=== PATIENT | male | born 1950 | race Caucasian/White ===

== ENCOUNTER → 2017-02-01 | Outpatient (CLI) | payer MEDICARE ==
--- NOTE | 2017-02-01 08:46 | US ---
EXAMINATION TYPE: US liver DATE OF EXAM: 02/01/2017 COMPARISON: NONE CLINICAL HISTORY: R94.5 ABN LIVER FUNCTIONS. acid reflux EXAM MEASUREMENTS: Liver Length: 16.4 cm Gallbladder Wall: Surgically absent CBD: 0.8 cm Right Kidney: 10.3 x 4.3 x 5.6 cm overlying bowel gas limits exam Pancreas: not seen Liver: very difficult to penetrate, heterogeneous, intercostal imaging Gallbladder: Surgically absent Evidence for sonographic Jimenez's sign: no CBD: wnl Right Kidney: wnl Pancreas is suboptimally seen on images saved. Liver is heterogeneously hyperechoic. Evaluation for f ocal masses is suboptimal due to the heterogeneity. No acute hepatic ductal dilatation is seen. Commo n bile duct is within normal limits after cholecystectomy. Gallbladder surgically absent. Limited ivania ges of right kidney show no gross hydronephrosis. IMPRESSION: Heterogeneously hyperechoic appearance to liver could reflect product of diffuse fatty in filtration or underlying hepatocellular disease. Imaging guided random biopsy for tissue analysis can be performed if desired.
== END ==
LOC: RADUSWWP 07:05
PROVIDERS: ATTEND Internal Medicine
DX: R94.5 Abnormal results of liver function studies (principal)
CPT/HCPCS: 76705

== ENCOUNTER → 2017-08-13 | Outpatient (CLI) | payer MEDICARE | END | disposition home or self-care (01) | LOC: RADUSMAIN 07:53 | PROVIDERS: ATTEND Internal Medicine | DX: Z53.9 Procedure and treatment not carried out, unspecified reason (principal) ==

== ENCOUNTER 2022-11-03 08:45 | Day surgery (SDC) | payer MEDICARE ==
[2022-10-31 09:16] VITALS: BMI 29.4
[~2022-11-03 08:45] MED LIST: LACTATED RINGERS 1,000 ML IV SCH
[2022-11-03 10:36] VITALS: RESP 16; TEMP 98.1
[2022-11-03] MEDS ORDERED: PROPOFOL 10 MG/ML 20 ML VIAL IV ONE (11:56)
--- NOTE | 2022-11-03 12:09 | P.PCN ---
Date of Procedure: 11/03/22 Procedure(s) Performed: BRIEF HISTORY: Patient is a 72-year-old pleasant white male scheduled for an elective colonoscopy as a part of evaluation of Hemoccult-positive stool. PROCEDURE PERFORMED: Colonoscopy. PREOPERATIVE DIAGNOSIS: Hemoccult-positive stool. IV sedation per Anesthesia. PROCEDURE: After informed consent was obtained, the patient, was brought into the endoscopy unit. IV sedation was administered by Anesthesia under continuous monitoring. Digital rectal examination was normal. Initially the Olympus CF-160 flexible video colonoscope was then inserted in the rectum, gradually advanced into the cecum without any difficulty. Careful examination was performed as the scope was gradually being withdrawn. Ileocecal valve and the appendiceal orifice were visualized and appeared normal. Prep was excellent. Mucosa of the cecum, ascending colon, transverse colon, descending colon, sigmoid colon, and rectum appeared normal. Scattered sigmoid diverticulosis Retroflexion was performed in the rectum and no lesions were seen. The patient tolerated the procedure well. IMPRESSION: Normal-appearing colon from rectum to cecum with no evidence of colorectal neoplasia. Scattered sigmoid diverticulosis RECOMMENDATIONS: Findings of this examination were discussed with the patient as well as the his family. He was advised to have a repeat screening colonoscopy in 10 years..
[2022-11-03 12:33] VITALS: BP 117/78; PULSE 62
== END 2022-11-03 12:49 | disposition home or self-care (01) ==
LOC: ORWHC2ENDO 08:45
PROVIDERS: ATTEND Internal Medicine Gastroenterology
DX: K57.30 Diverticulosis of large intestine without perforation or abscess without bleeding (principal); K76.0 Fatty (change of) liver, not elsewhere classified; I10 Essential (primary) hypertension; N40.0 Benign prostatic hyperplasia without lower urinary tract symptoms; K21.9 Gastro-esophageal reflux disease without esophagitis; Z79.83 Long term (current) use of bisphosphonates; Z79.899 Other long term (current) drug therapy
CPT/HCPCS: 45378; J2704

== ENCOUNTER 2023-04-09 12:33 | Day surgery (SDC) | payer MEDICARE ==
[2023-04-04 09:07] VITALS: BMI 32.5
[2023-04-09] MEDS ORDERED: LACTATED RINGERS 1,000 ML IV ONE (12:43)
[2023-04-09 13:12] VITALS: TEMP 97.3
[2023-04-09] MEDS ORDERED: LIDOCAINE 2% (PF) 20 MG/ML 5 ML VIAL ONE (13:26)
[2023-04-09] MEDS ORDERED: PROPOFOL 10 MG/ML 20 ML VIAL IV ONE (13:26)
--- NOTE | 2023-04-09 13:28 | P.GSHP ---
History of Present Illness H&P Date: 04/09/23 Chief Complaint: . GERD this is a 73-year-old male complaints of GERD. Patient presents today for EGD. Past Medical History Past Medical History: GERD/Reflux, Hypertension, Liver Disease, Prostate Disorder Additional Past Medical History / Comment(s): Poor circulation legs. Fatty liver., difficulty urinating. Hx. of heart murmur History of Any Multi-Drug Resistant Organisms: None Reported Past Surgical History: Cholecystectomy Additional Past Surgical History / Comment(s): Colonoscopy Past Anesthesia/Blood Transfusion Reactions: No Reported Reaction Smoking Status: Never smoker - Past Family History Father Family Medical History: Cancer Medications and Allergies Home Medications Medication Instructions Recorded Confirmed Type Bisoprolol-Hctz 5-6.25 mg [Ziac 1 tab PO HS 10/31/22 04/04/23 History 5-6.25 MG] Omeprazole (Unknown Dose) 1 tab PO PC-LUNCH 10/31/22 04/04/23 History Tamsulosin [Flomax] 0.4 mg PO HS 10/31/22 04/04/23 History Allergies Allergy/AdvReac Type Severity Reaction Status Date / Time No Known Allergies Allergy Verified 04/09/23 12:47 Surgical - Exam Vital Signs Temp Pulse Resp BP Pulse Ox 97.3 F L 61 18 141/75 93 L 04/09/23 12:56 04/09/23 12:56 04/09/23 12:56 04/09/23 12:56 04/09/23 12:56 - General well developed, well nourished, no distress - Eyes PERRL - ENT normal pinna - Neck no masses - Respiratory normal expansion, normal respiratory effort Assessment and Plan Assessment: GERD. We'll perform EGD.
--- NOTE | 2023-04-09 13:39 | P.OP ---
Date of Procedure: 04/09/23 Preoperative Diagnosis: GERD Postoperative Diagnosis: sliding hiatal hernia Antral gastritis Procedure(s) Performed: EGD Anesthesia: MAC Surgeon: Luca Wren Pathology: other (antrum) Condition: stable Disposition: PACU Description of Procedure: patient's placed on the endoscopy table in the lateral position. He received IV sedation. The gastroscope patient oropharynx passed in the esophagus and into the stomach. Scope some placed through the pylorus. The first and second portion of the duodenum appeared normal. Scope was then brought back the antrum this was minimal inflamed. A biopsies was performed. Scope wais retroflexed.. The patient had a sliding hiatal hernia. The patient was coughing this could be visualized. sliding hiatal hernia could be seen moving with the patient was coughing. The GE junction was at 40 cms. The distal esophagus mildly inflamed. The proximal esophagus appeared normal. Scope withdrawn for patient.
[2023-04-09 14:00] VITALS: BP 125/76; PULSE 68; RESP 16
== END 2023-04-09 14:10 | disposition home or self-care (01) ==
LOC: ORWHC2ENDO 12:33
PROVIDERS: ATTEND Surgery
DX: K29.50 Unspecified chronic gastritis without bleeding (principal); K31.A11 Gastric intestinal metaplasia without dysplasia, involving the antrum; K44.9 Diaphragmatic hernia without obstruction or gangrene; K21.9 Gastro-esophageal reflux disease without esophagitis; I10 Essential (primary) hypertension; K76.9 Liver disease, unspecified; N40.0 Benign prostatic hyperplasia without lower urinary tract symptoms; N42.9 Disorder of prostate, unspecified; K76.0 Fatty (change of) liver, not elsewhere classified; F17.200 Nicotine dependence, unspecified, uncomplicated; Z90.49 Acquired absence of other specified parts of digestive tract; Z80.9 Family history of malignant neoplasm, unspecified; Z79.899 Other long term (current) drug therapy
CPT/HCPCS: 88305; 88342; 43239; J2704; J2001

== ENCOUNTER → 2023-05-30 | Outpatient (CLI) | payer MEDICARE ==
[2023-05-30 18:47] LABS: Basophils # (A) 0.04 X 10*3/uL (0.00-0.10); Basophils % (A) 0.7 %; Eosinophils # (A) 0.22 X 10*3/uL (0.04-0.35); Eosinophils % (A) 3.7 %; HCT 41.5 % (39.6-50.0); HGB 13.8 g/dL (13.0-17.0); Lymphocytes # (A) 1.55 X 10*3/uL (0.90-5.00); Lymphocytes % (A) 25.7 %; MCH 30.1 pg (27.0-32.0); MCHC 33.3 g/dL (32.0-37.0); MCV 90.6 FL (80.0-97.0); Mean Platelet Volume 12.1 FL (9.5-12.2); Monocytes # (A) 0.59 X 10*3/uL (0.20-1.00); Monocytes % (A) 9.8 %; NRBC Per 100 WBC 0 X 10*3/uL (0.00-0.01); Neutrophils % (A) 59.8 %; Platelet Count 182 X 10*3/uL (140-440); RBC 4.58 X 10*6/uL (4.40-5.60); RDW 12.9 % (11.5-14.5); WBC 6.02 X 10*3/uL (4.50-10.00)
== END | disposition home or self-care (01) ==
LOC: LABPAT 13:37
PROVIDERS: ATTEND Surgery
DX: Z01.812 Encounter for preprocedural laboratory examination (principal); K21.00 Gastro-esophageal reflux disease with esophagitis, without bleeding
CPT/HCPCS: 85025; 93005

== ENCOUNTER 2023-06-08 06:33 | Day surgery (SDC) | payer MEDICARE ==
[2023-06-08] MEDS ORDERED: MIDAZOLAM 2 MG/2 ML VIAL IV PRN (07:00)
[2023-06-08] MEDS ORDERED: HYDROmorphone 0.5 MG/0.5 ML SYRINGE IVP PRN (07:00)
[2023-06-08] MEDS: LACTATED RINGERS 1,000 ML IV SCH (07:28)
[2023-06-08] MEDS: ACETAMINOPHEN TAB 500 MG TAB PO PRN (07:44)
[2023-06-08] MEDS: ONDANSETRON 4 MG/2 ML VIAL IVP ONE (07:44)
[2023-06-08] MEDS: DEXAMETHASONE SOD PHOSPHATE 4 MG/ML 1 ML VIAL IV ONE (07:44)
[2023-06-08] MEDS: HEPARIN SODIUM,PORCINE 5,000 UNIT/ML 1 ML VIAL SQ PRN (07:44)
[2023-06-08] MEDS: FAMOTIDINE 20 MG/2 ML VIAL IVP ONE (07:45)
[2023-06-08] MEDS ORDERED: GLYCOPYRROLATE 0.2 MG/ML 2 ML VIAL ONE (08:34)
[2023-06-08] MEDS ORDERED: LIDOCAINE 1% INJ 10MG/ML (20 ML MDV) ONE (08:34)
[2023-06-08] MEDS ORDERED: ROCURONIUM 10 MG/ML (5 ML VIAL) IV ONE (08:34)
[2023-06-08] MEDS ORDERED: PROPOFOL 10 MG/ML 20 ML VIAL IV ONE (08:34)
[2023-06-08] MEDS ORDERED: NEOSTIGMINE 1 MG/ML 10 ML VIAL ONE (08:34)
[2023-06-08] MEDS ORDERED: MIDAZOLAM 2 MG/2 ML VIAL ONE (08:34)
[2023-06-08] MEDS ORDERED: fentaNYL (PF) 50 MCG/ML 2 ML AMP ONE (08:34)
[2023-06-08] MEDS ORDERED: HYDROmorphone (PF) 1 MG/ML ONE (08:34)
[2023-06-08] MEDS ORDERED: SUCCINYLCHOLINE CHLORIDE 200 MG/10 ML VIAL IV ONE (08:34)
[2023-06-08] MEDS: LIDOCAINE 1%-EPI 1:100,000 50 ML VIAL SQ ONE (09:17)
[2023-06-08] MEDS ORDERED: ONDANSETRON 4 MG/2 ML VIAL IVP PRN (09:49)
[2023-06-08] MEDS ORDERED: HYDROmorphone 1 MG/ML 1 ML SYRINGE IVP PRN (09:49)
--- NOTE | 2023-06-08 09:49 | P.OP ---
Date of Procedure: 06/08/23 Preoperative Diagnosis: GERD Postoperative Diagnosis: GERD Hiatal hernia Procedure(s) Performed: Laparoscopic Veronica fundoplication Anesthesia: BLANK Surgeon: Luca Wren Estimated Blood Loss (ml): 5 Pathology: none sent Condition: stable Disposition: PACU Description of Procedure: Korina patient was placed on the operating table in the supine position. The patient received general anesthesia. And was placed in dorsal lithotomy position. The patient was prepped and draped in the usual sterile fashion. The skin incision sites were anesthetized with 1% local Xylocaine. The skin was incised in the left periumbilical area and then using a blade less 5 mm trocar under direct visualization panel cavity was entered. After adequate insufflation the laparoscope was then placed into the peritoneal cavity. Next a 5 mm trochars placed in the right epigastric position. Another 5 millimeter trocar the right lateral position. Another 5 millimeter trocar in the left lateral position a 5 mm trocar is placed in the left epigastric position. And then the initial 5 mm trocar was exchanged for a 10 mm trocar. The left lateral lobe liver was retracted. The hernia was seen. The crural defect was then dissected using the Harmonic scissors device. A 360 crural dissection was performed the esophagus stomach was reduced back into the peritoneal Cavity. The crural defect was then closed using 2-0 Ethibond suture. Next the fundus of the stomach was mobilized using the Wilton scissors device. and then a 58- Tajik bougie dilator was placed oropharynx passed into the esophagus and stomach the fundal plication wrap was then performed by grasping the fundus posteriorly and bringing it around the esophagus and stomach fundoplication was then performed using 2-0 Ethibond suture. Care was taken that the fundal location rested over top of the intra-abdominal esophagus. There was no injury seen to the stomach or esophagus. The dilator was then withdrawn. The abdomen was irrigated there is no bleeding seen. The trochars were then withdrawn and then skin incision sites were closed using 3-0 Monocryl suture Steri-Strips are applied. Patient thought procedure well and sent to recovery room in stable condition.
[2023-06-08] MEDS: METOCLOPRAMIDE 5 MG/ML 2 ML VIAL IVP SCH (12:55)
[2023-06-08 13:45] VITALS: BMI 29.8
[2023-06-08] MEDS: D5-0.45% NACL WITH KCL 20MEQ/L 1,000 ML IV SCH (14:47)
[2023-06-09] MEDS: ENOXAPARIN 40 MG/0.4 ML SYRINGE SQ SCH (09:23)
--- NOTE | 2023-06-09 13:32 | P.PN ---
Progress Note - Text Progress Note Date: 06/09/23 Patient is postop day #1 from Veronica fundoplication. Overall he is feeling well but having difficulty with liquids currently. We will observe him 1 further day. Abdomen soft to palpation.
--- NOTE | 2023-06-09 14:32 | P.CONS ---
History of Present Illness - Reason for Consult Consult date: 06/09/23 - History of Present Illness This is a pleasant 73-year-old male with medical history of enlarged prostate, gastroesophageal reflux disease, hypertension, fatty liver, never smoker. Patient comes in for scheduled laparoscopic Veronica fundoplication is seen and evaluated today postoperative day #1. He is not reporting any significant abdominal discomfort no nausea vomiting or diarrhea. He has no shortness of breath no chest discomfort. He did state that he was having difficulty swallowing this morning. He stated that he did discuss this with the surgeon. He has a level today is 3.7. He is continued on D5 half-normal saline with 20 mEq of potassium at 125 MLS per hour. He is on DVT prophylaxis. He has resumed his Flomax. Hemodynamically he is stable. Pressure is running on the lower side with 100 systolic and we would recommend to hold his combination blood pressure medication at this time. REVIEW OF SYSTEMS: CONSTITUTIONAL: No fever, no malaise, no fatigue. HEENT: No recent visual problems or hearing problems. Denied any sore throat. CARDIOVASCULAR: No chest pain, orthopnea, PND, no palpitations, no syncope. PULMONARY: No shortness of breath, no cough, no hemoptysis. GASTROINTESTINAL: No diarrhea, no nausea, no vomiting, no abdominal pain. NEUROLOGICAL: No headaches, no weakness, no numbness. HEMATOLOGICAL: Denies any bleeding or petechiae. GENITOURINARY: Denies any burning micturition, frequency, or urgency. MUSCULOSKELETAL/RHEUMATOLOGICAL: Denies any joint pain, swelling, or any muscle pain. ENDOCRINE: Denies any polyuria or polydipsia. The rest of the 14-point review of systems is negative. PHYSICAL EXAMINATION: GENERAL: The patient is alert and oriented x3, not in any acute distress. Well developed, well nourished. HEENT: Pupils are round and equally reacting to light. EOMI. No scleral icterus. No conjunctival pallor. Normocephalic, atraumatic. No pharyngeal erythema. No thyromegaly. CARDIOVASCULAR: S1 and S2 present. No murmurs, rubs, or gallops. PULMONARY: Chest is clear to auscultation, no wheezing or crackles. ABDOMEN: Soft, nontender, nondistended, normoactive bowel sounds. No palpable organomegaly. MUSCULOSKELETAL: No joint swelling or deformity. EXTREMITIES: No cyanosis, clubbing, or pedal edema. NEUROLOGICAL: Gross neurological examination did not reveal any focal deficits. SKIN: No rashes. Assessment and plan -Status postoperative day #1 laparoscopic Niesen fundoplication -History of hypertension currently normotensive would recommend to hold his bisoprolol/hydrochlorothiazide combination medication -History of BPH maintained on Flomax which has been resumed at this time -Gastroesophageal reflux disease maintained on omeprazole outpatient GI Prophylaxis as per primary DVT prophylaxis as per primary Thank you currently for this consultation would recommend to continue with incentive spirometer 10 times an hour while awake. Continue on bowel regimen with patient is using narcotics for pain management. Would recommend to repeat labs in the morning. The impression and plan of care has been dictated by Jessica Clement Nurse Practitioner as directed. Dr. Bernard MD I have performed a history and physical examination and medical decision making of this patient, discussed the same with the dictator, and agree with the di ctators assessment and plan as written, documented as a scribe. Based on total visit time, I have performed more than 50% of this visit. Past Medical History Past Medical History: Chest Pain / Angina, GERD/Reflux, Hypertension, Liver Disease, Prostate Disorder Additional Past Medical History / Comment(s): Poor circulation legs. ,Fatty liver., BPH., heart murmur, hiatal hernia., pt states occasional chest pain/pressure. History of Any Multi-Drug Resistant Organisms: None Reported Past Surgical History: Cholecystectomy Additional Past Surgical History / Comment(s): Colonoscopy, EGD Past Anesthesia/Blood Transfusion Reactions: No Reported Reaction Past Psychological History: No Psychological Hx Reported Smoking Status: Never smoker Past Alcohol Use History: None Reported Past Drug Use History: None Reported - Past Family History Father Family Medical History: Cancer Medications and Allergies Home Medications Medication Instructions Recorded Confirmed Type Bisoprolol-Hctz 5-6.25 mg [Ziac 1 tab PO HS 10/31/22 06/08/23 History 5-6.25 MG] Tamsulosin [Flomax] 0.4 mg PO HS 10/31/22 06/08/23 History Omeprazole 20 mg PO AC-LUNCH 06/04/23 06/08/23 History Allergies Allergy/AdvReac Type Severity Reaction Status Date / Time No Known Allergies Allergy Verified 06/08/23 07:33 Physical Exam Vitals: Vital Signs Temp Pulse Resp BP Pulse Ox 03/16/24 08:00 62 17 06/09/23 07:04 97.8 F 62 17 100/67 99 06/09/23 01:55 98.1 F 54 L 20 113/64 99 06/08/23 19:46 98.3 F 62 20 107/62 96 06/08/23 13:26 62 114/76 06/08/23 13:12 62 118/70 06/08/23 12:57 62 112/68 06/08/23 12:41 97.9 F 63 18 120/72 Intake and Output 06/08/23 06/09/23 06/09/23 22:59 06:59 14:59 Intake Total 220 Balance 220 Intake: Oral 220 Other: Voiding Method Toilet Toilet # Voids 3 3 Results CBC & Chem 7: 06/08/23 07:23 Assessment and Plan Time with Patient: Less than 30
[2023-06-10] MEDS: TAMSULOSIN 0.4 MG CAP.ER.24H PO SCH (00:26)
[2023-06-10 10:10] LABS: Basophils # (A) 0.04 X 10*3/uL (0.00-0.10); Basophils % (A) 0.6 %; Eosinophils # (A) 0.24 X 10*3/uL (0.04-0.35); Eosinophils % (A) 3.6 %; HCT 41.4 % (39.6-50.0); HGB 13.5 g/dL (13.0-17.0); Lymphocytes # (A) 1.45 X 10*3/uL (0.90-5.00); Lymphocytes % (A) 21.6 %; MCH 29.7 pg (27.0-32.0); MCHC 32.6 g/dL (32.0-37.0); MCV 91.2 FL (80.0-97.0); Mean Platelet Volume 12.6 FL (9.5-12.2); Monocytes # (A) 0.74 X 10*3/uL (0.20-1.00); NRBC Per 100 WBC 0 X 10*3/uL (0.00-0.01); Neutrophils # (A) 4.21 X 10*3/uL (1.80-7.70); Neutrophils % (A) 62.9 %; Platelet Count 160 X 10*3/uL (140-440); RBC 4.54 X 10*6/uL (4.40-5.60); RDW 13.2 % (11.5-14.5)
--- NOTE | 2023-06-10 10:36 | P.DS ---
Providers Date of admission: 06/08/2023 Expected date of discharge: 06/10/23 Attending physician: Luca Wren Consults: 06/08/23 09:49 Consult Physician Routine Consulting Provider: Dhruv Alberto Consult Reason/Comments: Medical management Do you want consulting provider notified?: Yes Primary care physician: [facility] Course: This is a 73-year-old male underwent laparoscopic Veronica fundoplication. Patient will subcutaneous multiple. Please hospital chart for details. Procedures: Laparoscopic Veronica fundoplication Patient Condition at Discharge: Good Plan - Discharge Summary Discharge Rx Participant: No New Discharge Prescriptions: New Docusate [Colace] 100 mg PO BID #20 capsule Ibuprofen [Motrin] 600 mg PO Q6HR PRN #40 tab PRN Reason: Pain oxyCODONE HCL [OxyIR] 5 mg PO Q6H PRN 3 Days #10 tab PRN Reason: Pain Acetaminophen Tab [Tylenol] 650 mg PO Q6H #30 tab No Action Tamsulosin [Flomax] 0.4 mg PO HS Omeprazole 20 mg PO AC-LUNCH Bisoprolol-Hctz 5-6.25 mg [Ziac 5-6.25 MG] 1 tab PO HS Discharge Medication List Bisoprolol-Hctz 5-6.25 mg [Ziac 5-6.25 MG] 1 tab PO HS 10/31/22 [History] Tamsulosin [Flomax] 0.4 mg PO HS 10/31/22 [History] Omeprazole 20 mg PO AC-LUNCH 06/04/23 [History] Acetaminophen Tab [Tylenol] 650 mg PO Q6H #30 tab 06/10/23 [Rx] Docusate [Colace] 100 mg PO BID #20 capsule 06/10/23 [Rx] Ibuprofen [Motrin] 600 mg PO Q6HR PRN #40 tab 06/10/23 [Rx] oxyCODONE HCL [OxyIR] 5 mg PO Q6H PRN 3 Days #10 tab 06/10/23 [Rx] Discharge Disposition: HOME SELF-CARE
[2023-06-10 11:30] LABS: BUN/Creat Ratio 8.62 Ratio (12.00-20.00); Blood Urea Nitrogen 6.9 mg/dL (9.0-27.0); Calcium 8.7 mg/dL (8.7-10.3); Carbon Dioxide 22.4 mmol/L (21.6-31.8); Chloride 109 mmol/L (96-109); Glucose 117 mg/dL (70-110); Magnesium 2.4 mg/dL (1.5-2.4); Potassium 4.3 mmol/L (3.5-5.5); Sodium 143 mmol/L (135-145)
--- NOTE | 2023-06-10 22:17 | P.PN ---
Subjective Progress Note Date: 06/10/23 This is a pleasant 73-year-old male with medical history of enlarged prostate, gastroesophageal reflux disease, hypertension, fatty liver, never smoker. Patient comes in for scheduled laparoscopic Veronica fundoplication is seen and evaluated today postoperative day #1. He is not reporting any significant abdominal discomfort no nausea vomiting or diarrhea. He has no shortness of breath no chest discomfort. He did state that he was having difficulty swallowing this morning. He stated that he did discuss this with the surgeon. He has a level today is 3.7. He is continued on D5 half-normal saline with 20 mEq of potassium at 125 MLS per hour. He is on DVT prophylaxis. He has resumed his Flomax. Hemodynamically he is stable. Pressure is running on the lower side with 100 systolic and we would recommend to hold his combination blood pressure medication at this time. 06/10/2023 Patient is evaluated today on the medical floor. He is postoperative day #2 lap veronica. He is able to swallow clears. He is having issues with urinary retention and PVR residual done showing greater than 300 and again at greater than 400. Recommending to strait cath the patient and repeat a PVR in 6 hours if he is not retaining urine he can be discharged home. He is maintained on flomax daily which has been resumed postsurgical. Review of Systems Constitutional: Denied any fatigue denied any fever. Cardio vascular: denied any chest pain, palpitations Gastrointestinal: denied any nausea, vomiting, diarrhea Pulmonary: Denied any shortness of breath cough Neurologic denied any new focal deficits All inpatient medications were reviewed and appropriate changes in these medications as dictated in the interval history and assessment and plan. PHYSICAL EXAMINATION: GENERAL: The patient is alert and oriented x3, not in any acute distress. Well developed, well nourished. HEENT: Pupils are round and equally reacting to light. EOMI. No scleral icterus. No conjunctival pallor. Normocephalic, atraumatic. No pharyngeal erythema. No thyromegaly. CARDIOVASCULAR: S1 and S2 present. No murmurs, rubs, or gallops. PULMONARY: Chest is clear to auscultation, no wheezing or crackles. ABDOMEN: Soft, nontender, nondistended, normoactive bowel sounds. No palpable organomegaly. MUSCULOSKELETAL: No joint swelling or deformity. EXTREMITIES: No cyanosis, clubbing, or pedal edema. NEUROLOGICAL: Gross neurological examination did not reveal any focal deficits. SKIN: No rashes. Assessment and plan -Status postoperative day #2 laparoscopic Niesen fundoplication -Urinary retention postoperatively. Patient has been resumed on flomax as above recommend to strait cath and repeat PVR patient can discharge home later today if he is not retaining. He may require indwelling catheter. -History of hypertension currently normotensive would recommend to hold his bisoprolol/hydrochlorothiazide combination medication -History of BPH maintained on Flomax which has been resumed at this time -Gastroesophageal reflux disease maintained on omeprazole outpatient GI Prophylaxis as per primary DVT prophylaxis as per primary Thank you currently for this consultation would recommend to continue with incentive spirometer 10 times an hour while awake. Continue on bowel regimen with patient is using narcotics for pain management. Would recommend to repeat labs in the morning. The impression and plan of care has been dictated by Jessica Clement, Nurse Practitioner as directed. Dr. Bernard MD I have performed a history and physical examination and medical decision making of this patient, discussed the same with the dictator, and agree with the dictators assessment and plan as written, documented as a scribe. Based on total visit time, I have performed more than 50% of this visit. Objective - Vital Signs Vital signs: Vital Signs Temp 98.2 F 06/10/23 14:04 Pulse 67 06/10/23 14:04 Resp 18 06/10/23 14:04 BP 144/79 06/10/23 14:04 Pulse Ox 95 06/10/23 14:04 FiO2 Intake & Output 06/10/23 06/10/23 06/11/23 06:59 18:59 06:59 Intake Total 420 775 Output Total 890 Balance 420 -115 Intake: Intake, IV Titration 375 Amount D5-0.45% NaCl with KCl 375 20Meq/l 1,000 ml @ 125 mls/hr IV .Q8H SKYLAR Rx#: [id number] Oral 420 400 Output: Urine 500 Straight 500 Post Void Residual 390 Other: Voiding Method Toilet Toilet # Voids 4 3 - Labs CBC & Chem 7: 06/10/23 05:37 06/10/23 05:37 Labs: Abnormal Lab Results - Last 24 Hours (Table) 06/10/23 06/10/23 Range/Units 05:37 05:37 MPV 12.6 H (9.5-12.2) FL BUN 6.9 L (9.0-27.0) mg/dL BUN/Creatinine Ratio 8.62 L (12.00-20.00) Ratio Glucose 117 H (70-110) mg/dL Assessment and Plan Time with Patient: Less than 30
[2023-06-11 08:15] VITALS: BP 129/79; PULSE 66; TEMP 98.2
[2023-06-11 08:43] LABS: Blood Urea Nitrogen 5.2 mg/dL (9.0-27.0); Calcium 8.8 mg/dL (8.7-10.3); Carbon Dioxide 25.5 mmol/L (21.6-31.8); Chloride 107 mmol/L (96-109); Glucose 89 mg/dL (70-110); Potassium 3.8 mmol/L (3.5-5.5); Sodium 143 mmol/L (135-145)
[2023-06-11 11:09] VITALS: RESP 18
--- NOTE | 2023-06-11 11:39 | P.DS ---
Providers Expected date of discharge: 06/11/23 Attending physician: Luca Wren Consults: 06/08/23 09:49 Consult Physician Routine Consulting Provider: Dhruv Alberto Consult Reason/Comments: Medical management Do you want consulting provider notified?: Yes Primary care physician: Apryl Shelley Hospital Course: Discharge diagnosis 1. GERD and hiatal hernia status post laparoscopic Niesen fundoplication 2. Urinary retention resolved Hospital course Hospital course This is a 73-year-old male with a history of GERD and hiatal hernia status post laparoscopic Niesen fundoplication. Patient is tolerating diet. His pain is controlled. He is afebrile. He has been up and ambulating. He is having bowel movements. He had issues with urinary retention. This now has resolved. Patient is stable for discharge. He has been cleared by medical service. Please refer to chart for any further details. Physician [employer] note has been reviewed by physician. Signing provider agrees with the documented findings, assessment, and plan of care. Patient Condition at Discharge: Stable Plan - Discharge Summary Discharge Rx Participant: No New Discharge Prescriptions: New Docusate [Colace] 100 mg PO BID #20 capsule Ibuprofen [Motrin] 600 mg PO Q6HR PRN #40 tab PRN Reason: Pain oxyCODONE HCL [OxyIR] 5 mg PO Q6H PRN 3 Days #10 tab PRN Reason: Pain Acetaminophen Tab [Tylenol] 650 mg PO Q6H #30 tab Continue Tamsulosin [Flomax] 0.4 mg PO HS Omeprazole 20 mg PO AC-LUNCH Bisoprolol-Hctz 5-6.25 mg [Ziac 5-6.25 MG] 1 tab PO HS Discharge Medication List Bisoprolol-Hctz 5-6.25 mg [Ziac 5-6.25 MG] 1 tab PO HS 10/31/22 [History] Tamsulosin [Flomax] 0.4 mg PO HS 10/31/22 [History] Omeprazole 20 mg PO AC-LUNCH 06/04/23 [History] Acetaminophen Tab [Tylenol] 650 mg PO Q6H #30 tab 06/10/23 [Rx] Docusate [Colace] 100 mg PO BID #20 capsule 06/10/23 [Rx] Ibuprofen [Motrin] 600 mg PO Q6HR PRN #40 tab 06/10/23 [Rx] oxyCODONE HCL [OxyIR] 5 mg PO Q6H PRN 3 Days #10 tab 06/10/23 [Rx] Follow up Appointment(s)/Referral(s): Luca Wren MD [STAFF PHYSICIAN] - 1 Week (office not answering Please call to schedule appointment ) Activity/Diet/Wound Care/Special Instructions: No driving while taking OxyIR No lifting over 10 pounds Shower daily. No soaking or tub baths for 2 weeks Very light activity until you are reevaluated at your follow up appointment with your surgeon No straws or carbonated beverages Continue a full liquid/soft diet for 2 weeks Discharge Disposition: HOME SELF-CARE
--- NOTE | 2023-06-12 23:00 | P.PN ---
Subjective Progress Note Date: 06/11/23 This is a pleasant 73-year-old male with medical history of enlarged prostate, gastroesophageal reflux disease, hypertension, fatty liver, never smoker. Patient comes in for scheduled laparoscopic Maddie fundoplication is seen and evaluated today postoperative day #1. He is not reporting any significant abdominal discomfort no nausea vomiting or diarrhea. He has no shortness of breath no chest discomfort. He did state that he was having difficulty swallowing this morning. He stated that he did discuss this with the surgeon. He has a level today is 3.7. He is continued on D5 half-normal saline with 20 mEq of potassium at 125 MLS per hour. He is on DVT prophylaxis. He has resumed his Flomax. Hemodynamically he is stable. Pressure is running on the lower side with 100 systolic and we would recommend to hold his combination blood pressure medication at this time. 06/10/2023 Patient is evaluated today on the medical floor. He is postoperative day #2 lap maddie. He is able to swallow clears. He is having issues with urinary retention and PVR residual done showing greater than 300 and again at greater than 400. Recommending to strait cath the patient and repeat a PVR in 6 hours if he is not retaining urine he can be discharged home. He is maintained on flomax daily which has been resumed postsurgical. 06/11/2023 Patient was evaluated in follow up today on the medical floor he is postoperative day #3 laproscopic maddie fundloplication. He was resumed on flomax postoperatively. His urinary retention has resolved and he will not required indwelling strickland catheter on discharge. Patient medically is clear. He will be discharged home today. Review of Systems Constitutional: Denied any fatigue denied any fever. Cardio vascular: denied any chest pain, palpitations Gastrointestinal: denied any nausea, vomiting, diarrhea Pulmonary: Denied any shortness of breath cough Neurologic denied any new focal deficits All inpatient medications were reviewed and appropriate changes in these medications as dictated in the interval history and assessment and plan. PHYSICAL EXAMINATION: GENERAL: The patient is alert and oriented x3, not in any acute distress. Well developed, well nourished. HEENT: Pupils are round and equally reacting to light. EOMI. No scleral icterus. No conjunctival pallor. Normocephalic, atraumatic. No pharyngeal erythema. No thyromegaly. CARDIOVASCULAR: S1 and S2 present. No murmurs, rubs, or gallops. PULMONARY: Chest is clear to auscultation, no wheezing or crackles. ABDOMEN: Soft, nontender, nondistended, normoactive bowel sounds. No palpable or ganomegaly. MUSCULOSKELETAL: No joint swelling or deformity. EXTREMITIES: No cyanosis, clubbing, or pedal edema. NEUROLOGICAL: Gross neurological examination did not reveal any focal deficits. SKIN: No rashes. Assessment and plan -Status postoperative day #3 laparoscopic Niesen fundoplication -Urinary retention postoperatively. Patient has been resumed on flomax as above recommend to strait cath and repeat PVR shows no urinary retention. -History of hypertension currently normotensive would recommend to hold his bisoprolol/hydrochlorothiazide combination medication -History of BPH maintained on Flomax which has been resumed at this time -Gastroesophageal reflux disease maintained on omeprazole outpatient GI Prophylaxis as per primary DVT prophylaxis as per primary Thank you currently for this consultation would recommend to continue with incentive spirometer 10 times an hour while awake. Continue on bowel regimen with patient is using narcotics for pain management. Continue lap maddie clear liquid diet on discharge. Follow up closely with general surgery. The impression and plan of care has been dictated by Jessica Clement Nurse Practitioner as directed. Dr. Bernard MD I have performed a history and physical examination and medical decision making of this patient, discussed the same with the dictator, and agree with the dictators assessment and plan as written, documented as a scribe. Based on total visit time, I have performed more than 50% of this visit. Objective - Vital Signs Vital signs: Vital Signs Temp 98.2 F 06/11/23 07:43 Pulse 66 06/11/23 10:35 Resp 18 06/11/23 10:35 BP 129/79 06/11/23 07:43 Pulse Ox 97 06/11/23 07:43 FiO2 - Labs CBC & Chem 7: 06/10/23 05:37 06/11/23 04:44 Assessment and Plan Time with Patient: Less than 30
== END 2023-06-11 12:21 | disposition home or self-care (01) ==
LOC: OR 06:33 → 4SSUR 09:41 → OR 06-11 12:21
PROVIDERS: ATTEND Surgery
DX: K44.9 Diaphragmatic hernia without obstruction or gangrene (principal); K21.9 Gastro-esophageal reflux disease without esophagitis; N40.1 Benign prostatic hyperplasia with lower urinary tract symptoms; K76.0 Fatty (change of) liver, not elsewhere classified; I10 Essential (primary) hypertension; Z90.49 Acquired absence of other specified parts of digestive tract; Z79.899 Other long term (current) drug therapy
CPT/HCPCS: 80048; 84132; 43280; J1644; J1100; J2765 ×3; J0690 ×2; J2405; J1650 ×2; J3490

== ENCOUNTER → 2023-12-21 | Outpatient (CLI) | payer MEDICARE ==
--- NOTE | 2023-12-21 11:04 | XR ---
EXAM TYPE: LUMBAR SPINE X RAY SERIES COMPARISON: NONE HISTORY: Pain TECHNIQUE: 4 views are submitted. FINDINGS: Alignment is anatomic. The pedicles are intact. The transverse processes are intact. There is no s pondylolysis or spondylolisthesis. Bilevel hypertrophic and mild to moderate degenerative disc disea se most marked at L4-5 and L5-S1. Facet arthropathy lower lumbar spine. Mild generalized demineraliza tion. IMPRESSION: 1. Bilateral mild to moderate degenerative changes and facet arthropathy. Most marked at L4-5 and L5- S1. [facility], , 12/21/2023 11:02 AM
== END | disposition home or self-care (01) ==
LOC: RADXRMAIN 10:37
PROVIDERS: ATTEND Family Medicine
DX: M47.817 Spondylosis without myelopathy or radiculopathy, lumbosacral region (principal); M51.37 Other intervertebral disc degeneration, lumbosacral region; R10.9 Unspecified abdominal pain
CPT/HCPCS: 72110

== ENCOUNTER 2024-04-01 14:51 | Emergency (ER) | payer MEDICARE ==
--- NOTE | 2024-04-01 15:30 | ED ---
Chest Pain HPI - General Chief Complaint: Chest Pain Stated Complaint: CP Time Seen by Provider: 04/01/24 15:13 Source: patient, RN notes reviewed, old records reviewed Mode of arrival: ambulatory Limitations: no limitations - History of Present Illness Initial Comments: This is a 74-year-old male to the ER for chest pain today. 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 No other complaints no travels or sick contacts no fever cough or congestion. MD Complaint: chest pain -: month(s) Onset: during rest, during exertion Pain Location: left chest Pain Radiation: none Severity: mild Severity scale (1-10): 3 Quality: tightness Consistency: intermittent Improves With: nothing Worsens With: nothing Other Symptoms: palpitations Treatments Prior to Arrival: none - Related Data Home Medications Medication Instructions Recorded Confirmed Bisoprolol-Hctz 5-6.25 mg [Ziac 1 tab PO HS 10/31/22 04/01/24 5-6.25 MG] Tamsulosin [Flomax] 0.4 mg PO HS 10/31/22 04/01/24 Allergies Allergy/AdvReac Type Severity Reaction Status Date / Time No Known Allergies Allergy Verified 04/01/24 16:16 Review of Systems ROS Statement: Those systems with pertinent positive or pertinent negative responses have been documented in the HPI. ROS Other: All systems not noted in ROS Statement are negative. EKG Findings - EKG Comments: EKG Findings:: EKG is sinus geovanna 55 [place] 182 QRS 109 QTc 416 - EKG Results: EKG: interpreted by ANAMARIA Past Medical History Past Medical History: GERD/Reflux, Hypertension, Liver Disease, Prostate Disorder Additional Past Medical History / Comment(s): Poor circulation legs. Fatty liver., difficulty urinating. Hx. of heart murmur History of Any Multi-Drug Resistant Organisms: None Reported Past Surgical History: Hernia Repair Additional Past Surgical History / Comment(s): Colonoscopy Past Anesthesia/Blood Transfusion Reactions: No Reported Reaction Past Psychological History: No Psychological Hx Reported Smoking Status: Never smoker Past Alcohol Use History: None Reported Past Drug Use History: None Reported - Past Family History Father Family Medical History: Cancer General Exam Limitations: no limitations General appearance: alert, in no apparent distress Head exam: Present: atraumatic, normocephalic, normal inspection Eye exam: Present: normal appearance, PERRL, EOMI. Absent: scleral icterus, conjunctival injection, periorbital swelling ENT exam: Present: normal exam, mucous membranes moist Neck exam: Present: normal inspection. Absent: tenderness, meningismus, lymphadenopathy Respiratory exam: Present: normal lung sounds bilaterally. Absent: respiratory distress, wheezes, rales, rhonchi, stridor Cardiovascular Exam: Present: normal rhythm, bradycardia, normal heart sounds. Absent: systolic murmur, diastolic murmur, rubs, gallop, clicks GI/Abdominal exam: Present: soft, normal bowel sounds. Absent: distended, tenderness, guarding, rebound, rigid Extremities exam: Present: normal inspection, full ROM, normal capillary refill. Absent: tenderness, pedal edema, joint swelling, calf tenderness Back exam: Present: normal inspection Neurological exam: Present: alert, oriented X3, CN II-XII intact Psychiatric exam: Present: normal affect, normal mood Skin exam: Present: warm, dry, intact, normal color. Absent: rash Course Vital Signs 04/01/24 14:53 Temperature 97.6 F Pulse Rate 56 L Respiratory 20 Rate Blood Pressure 114/76 O2 Sat by Pulse 98 Oximetry - Reevaluation(s) Reevaluation #1: 04/01/24 16:32 Medical records reviewed Reevaluation #2: 04/01/24 16:32 Patient still with episodic chest pain here in the ER Reevaluation #3: 04/01/24 16:32 Patient informed of results questions answered Reevaluation #4: Was pt. sent in by a medical professional or institution (, PA, VOCATIONAL CHILDCARE TEACHER, urgent care, hospital, or half-way...) When possible be specific @ -no Did you speak to anyone other than the patient for history (EMS, parent, family, police, friend...)? What history was obtained from this source @ -no Did you review nursing and triage notes (agree or disagree)? Why? @ -agree Are old charts reviewed (outside hosp., previous admission, EMS record, old EKG, old radiological studies, urgent care reports/EKG's, half-way records)? Report findings @ -yes Differential Diagnosis (chest pain, altered mental status, abdominal pain women, abdominal pain men, vaginal bleeding, weakness, fever, dyspnea, syncope, headache, dizziness, GI bleed, back pain, seizure, CVA, palpatations, mental health, musculoskeletal)? @ -prior EKG interpreted by me (3pts min.). @ -yes X-rays interpreted by me (1pt min.). @ -yes negative for acute disease CT interpreted by me (1pt min.). @ -no U/S interpreted by me (1pt. min.). @ -no What testing was considered but not performed or refused? (CT, X-rays, U/S, labs)? Why? @ -none What meds were considered but not given or refused? Why? @ -none Did you discuss the management of the patient with other professionals (professionals i.e. , PA, VOCATIONAL CHILDCARE TEACHER, lab, RT, psych nurse, social security assessor, tax lawyer, teacher, field artillery officer, caseworker intake)? Give summary @ -no Was smoking cessation discussed for >3mins.? @ -no Was critical care preformed (if so, how long)? @ -no Were there social determinants of health that impacted care today? How? (Homelessness, low income, unemployed, alcoholism, drug addiction, dent sportation, low edu. Level, literacy, decrease access to med. care, half-way, rehab)? @ -none Was there de-escalation of care discussed even if they declined (Discuss DNR or withdrawal of care, Hospice)? DNR status @ -no What co-morbidities impacted this encounter? (DM, HTN, Smoking, COPD, CAD, Cancer, CVA, ARF, Chemo, Hep., AIDS, mental health diagnosis, sleep apnea, morbid obesity)? @ -none Was patient admitted / discharged? Hospital course, mention meds given and route, prescriptions, significant lab abnormalities, going to OR and other pertinent info. @ - Undiagnosed new problem with uncertain prognosis? @ -no Drug Therapy requiring intensive monitoring for toxicity (Heparin, Nitro, Insulin, Cardizem)? @ -no Were any procedures done? @ -no Diagnosis/symptom? @ - Acute, or Chronic, or Acute on Chronic? @ -Acute Uncomplicated (without systemic symptoms) or Complicated (systemic symptoms)? @ -Complicated Side effects of treatment? @ -no Exacerbation, Progression, or Severe Exacerbation? @ -exacerbation Poses a threat to life or bodily function? How? (Chest pain, [place], [place], pneumonia, PE, COPD, DKA, ARF, appy, cholecystitis, CVA, Diverticulitis, Homicidal, Suicidal, threat to staff... and all critical care pts) @ -yes Reevaluation #5: Differential Chest Pain: Stable Angina, Unstable Angina, STEMI, NSTEMI Aortic Dissection, Pneumothorax, Musculoskeletal, Esophageal Spasm GERD, Cholecystitis, Pancreatitis, Zoster, this is not meant to be an all-inclusive list. 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 Patient was sent in by primary care for cardiac evaluation negative troponin normal EKG bradycardia, patient can be discharged home Disposition Clinical Impression: Chest pain Disposition: HOME SELF-CARE Condition: Good Instructions (If sedation given, give patient instructions): Chest Pain (ED) Is patient prescribed a controlled substance at d/c from ED?: No Referrals: Apryl Shelley MD [Primary Care Provider] - 1-2 days [facility] [Provider Group] - 1-2 days Time of Disposition: 16:30
[2024-04-01 15:53] LABS: Basophils % (A) 1 %; Eosinophils # (A) 0.2 k/uL (0-0.7); Eosinophils % (A) 4 %; HCT 44.6 % (39.0-53.0); HGB 14.6 gm/dL (13.0-17.5); Lymphocytes # (A) 1.2 k/uL (1.0-4.8); Lymphocytes % (A) 20 %; MCHC 32.8 g/dL (31.0-37.0); MCV 91.6 fL (80.0-100.0); Mean Platelet Volume 9.5; Monocytes # (A) 0.4 k/uL (0-1.0); Monocytes % (A) 7 %; Neutrophils # (A) 3.9 k/uL (1.3-7.7); Neutrophils % (A) 67 %; Platelet Count 183 k/uL (150-450); RBC 4.87 m/uL (4.30-5.90); RDW 12.6 % (11.5-15.5); WBC 5.8 k/uL (3.8-10.6)
[2024-04-01 16:04] LABS: INR 1.1 (<1.2); Partial Thromboplastin Time 26.1 sec (22.0-30.0); Prothrombin Time 11.7 sec (10.0-12.5)
[2024-04-01 16:05] LABS: ALT 29 U/L (4-49); AST 27 U/L (17-59); African American GFR (CKD) >90 (>60 ml/min/1.73 sqM); Alkaline Phosphatase 70 U/L (38-126); Anion Gap 11 mmol/L; Blood Urea Nitrogen 23 mg/dL (9-20); Calcium 9.7 mg/dL (8.4-10.2); Carbon Dioxide 28 mmol/L (22-30); Chloride 104 mmol/L (98-107); Glucose 112 mg/dL (74-99); Magnesium 2.3 mg/dL (1.6-2.3); Non-African American GFR(CKD) 87 (>60 ml/min/1.73 sqM); Potassium 3.9 mmol/L (3.5-5.1); Sodium 143 mmol/L (137-145); Total Bilirubin 0.4 mg/dL (0.2-1.3); Total Protein 7.6 g/dL (6.3-8.2)
[2024-04-01 16:12] LABS: NT-Pro-B-Type Natriuretic Pept 86 pg/mL
--- NOTE | 2024-04-01 16:30 | XR ---
EXAMINATION TYPE: XR chest 2V DATE OF EXAM: 04/01/2024 4:18 PM COMPARISON: None. CLINICAL INDICATION: Male, 74 years old with history of Chest Pain, TECHNIQUE: Frontal and lateral views of the chest are obtained. FINDINGS: There is no focal air space opacity, pleural effusion, or pneumothorax seen. The cardiac silhouette size is within normal limits. The osseous structures are intact. Cholecystectomy clips a re present. IMPRESSION: No acute process. [facility], , 04/01/2024 4:28 PM
[2024-04-01 16:47] VITALS: BP 128/84; PULSE 53; RESP 16; TEMP 97.8
== END 2024-04-01 16:52 | disposition home or self-care (01) ==
LOC: EC 14:51
DX: R07.9 Chest pain, unspecified (principal)
CPT/HCPCS: 36415; 71046; 80053; 83735; 83880; 84484; 85025; 85610; 85730; 93005; 99284; 99285

== ENCOUNTER → 2024-04-15 | Outpatient (CLI) | payer MEDICARE ==
--- NOTE | 2024-04-15 11:58 | FL ---
EXAMINATION TYPE: FL UGI air w esophagus DATE OF EXAM: 04/15/2024 COMPARISON: None CLINICAL INDICATION: Male, 74 years old with history of R07.9 CHEST PAIN; [facility], patient with hiatal he rnia repair approximately one year ago. No symptomatic recurrence of reflux. TECHNIQUE: A double contrast UGI study is performed. A total of 2 minutes 16 seconds of fluoroscopi c time was utilized during procedure and 44 images obtained. Total dose area product (DAP) in uGy*m?, mGy*cm? (or similar): 736.6. FINDINGS: The swallowing mechanism is normal and hypopharyngeal anatomy is preserved. The cervical and thoracic portions have a normal course and caliber. There is some delayed clearance of contrast from the distal esophagus and mild tertiary peristaltic waves noted here. Mucosa is normal and no persistent filling defect is encountered. Postsurgical changes of Veronica fundoplication. No recurrent hernia is identified. Gastroesophageal reflux could not be elicited during the course of the exam. The stomach shows normal distensibility, peristalsis, and mucosal folds. No evidence of any mass or ulcer disease. The duodenal bulb, sweep, and proximal small bowel loops are unremarkable. IMPRESSION: Mild distal esophageal dysmotility. Status post Veronica fundoplication. No recurrent herni a or other specific abnormality seen. [facility], , 04/15/2024 11:56 AM
== END | disposition home or self-care (01) ==
LOC: RADFLMAIN 09:27
PROVIDERS: ATTEND Surgery
DX: K22.4 Dyskinesia of esophagus (principal); Z98.890 Other specified postprocedural states; K44.9 Diaphragmatic hernia without obstruction or gangrene
CPT/HCPCS: 74246